=== PATIENT | female | born 1930 | race Caucasian/White ===

== ENCOUNTER 2021-03-28 11:09 | Inpatient (IN) ==
[2021-03-28 13:00] LABS: Bacteria,Urine Occasional /HPF (Few); Bilirubin,Urine Negative (Negative); Blood, Urine Negative (Negative); Glucose,Urine (UA) Negative (Negative); Ketones,Urine Negative (Negative); Nitrite,Urine Positive (Negative); Protein,Urine Negative; RBC,Urine 5 /HPF (0-4); Squamous Epithelial Cell,Urine Occasional /HPF (0-10); Urine Appearance CLEAR (Clear); Urine Color Yellow (Yellow); Urine Specific Gravity 1.008 (1.001-1.035); Urine Urobilinogen < 2.0 EU/DL (0.2-1.0)
[2021-03-28] MEDS ORDERED: SODIUM CHLORIDE 0.9% 500 ML IV STA (13:20)
[2021-03-28 14:05] LABS: Basophils % 0.6 % (0.0-0.8); Eosinophils # 0.5 10*3/uL (0.0-0.87); Eosinophils % 7.5 % (0.00-10.9); Hemoglobin 12.7 GM/DL (12.0-16.0); Immature Granulocytes % 0.4 %; Immature Granulocytes Absolute 0.03 #; Lymphocytes # 1.2 10*3/uL (1.4-4.0); Lymphocytes % 17.6 % (21.3-54.2); Mean Corpuscular HGB Conc 33.4 GM/DL (32-36); Mean Corpuscular Volume 91.3 FL (87-102); Mean Platelet Volume 8.3 FL (9.6-12.0); Monocytes % 9.5 % (1.7-12.7); Neutrophils % 64.4 % (38.7-73.9); Platelet Count 344 T/CUMM (130-400); Red Blood Count 4.16 MC/CUMM (3.8-5.5); Red Cell Distribution Width 13.2 % (9.3-17.3); White Blood Count 7.1 T/CUMM (4-12)
[2021-03-28 14:18] LABS: Calcium 9.3 MG/DL (8.5-10.1); Osmolality,Calculated 252.4 MOS/KG (273-304); Potassium 3.4 MMOL/L (3.5-5.1)
[2021-03-28] MEDS ORDERED: ONDANSETRON 4 MG/2 ML VIAL IV PRN (15:21)
[2021-03-28] MEDS ORDERED: BISACODYL 5 MG TABLET PO PRN (15:21)
[2021-03-28] MEDS ORDERED: GLUCAGON 1 MG VIAL IM PRN (15:21)
[2021-03-28] MEDS ORDERED: DEXTROSE 50% 25 GM/50 ML VIAL IV PRN (15:21)
[2021-03-28] MEDS ORDERED: POTASSIUM CHLORIDE 20 MEQ TABLET PO PRN (15:25)
[2021-03-28] MEDS: MEROPENEM 500 MG in SODIUM CHLORIDE 0.9% 100 ML IV SCH ×2 (16:50→21:19)
[2021-03-28] MEDS: SODIUM CHLORIDE 0.9% 1,000 ML IV SCH (18:58)
[2021-03-28] MEDS: PANTOPRAZOLE 40 MG TABLET PO SCH (19:57)
[2021-03-28] MEDS: ENOXAPARIN 40 MG/0.4 ML SYRINGE SUBCUT SCH (21:19)
[2021-03-28] MEDS ORDERED: ACETAMINOPHEN 325 MG TABLET PO PRN (22:33)
[2021-03-29] MEDS: MEROPENEM 500 MG in SODIUM CHLORIDE 0.9% 100 ML IV SCH ×4 (02:53→21:59)
[2021-03-29 05:18] LABS: Basophils % 0.5 % (0.0-0.8); Eosinophils # 0.6 10*3/uL (0.0-0.87); Eosinophils % 10.6 % (0.00-10.9); Hematocrit 31.5 VOL% (35.7-47.0); Hemoglobin 10.8 GM/DL (12.0-16.0); Immature Granulocytes % 0.4 %; Immature Granulocytes Absolute 0.02 #; Lymphocytes # 1.3 10*3/uL (1.4-4.0); Lymphocytes % 22.3 % (21.3-54.2); Mean Corpuscular HGB Conc 34.3 GM/DL (32-36); Mean Platelet Volume 8.4 FL (9.6-12.0); Monocytes % 11.5 % (1.7-12.7); Neutrophils % 54.7 % (38.7-73.9); Platelet Count 282 T/CUMM (130-400); Red Blood Count 3.46 MC/CUMM (3.8-5.5); White Blood Count 5.6 T/CUMM (4-12)
[2021-03-29 05:43] LABS: Eosinophils 8 % (0-10); Lymphocytes 16 % (20-55); Platelet Estimate Normal; Segmented Neutrophils 67 % (50-85); Total Cells Counted 100
[2021-03-29 05:53] LABS: Calcium 8.4 MG/DL (8.5-10.1); Osmolality,Calculated 263.4 MOS/KG (273-304); Potassium 3.3 MMOL/L (3.5-5.1)
[2021-03-29] MEDS: PANTOPRAZOLE 40 MG TABLET PO SCH (08:18)
[2021-03-29] MEDS: SODIUM CHLORIDE 0.9% 1,000 ML IV SCH ×2 (08:18→21:55)
[2021-03-29] MEDS ORDERED: amLODIPine 5 MG TABLET PO PRN (12:51)
[2021-03-29] MEDS: TRAVOPROST 0.004% OPH SOLN 2.5 ML BOTTLE BOTH EYES SCH (21:57)
[2021-03-29] MEDS: FLECAINIDE 50 MG TABLET PO SCH (21:58)
[2021-03-29] MEDS: ENOXAPARIN 40 MG/0.4 ML SYRINGE SUBCUT SCH (21:58)
[2021-03-29] MEDS: NON-FORMULARY MEDICATION (Melatonin 5 mg Tablet) PO SCH (22:06)
[2021-03-30] MEDS: MEROPENEM 500 MG in SODIUM CHLORIDE 0.9% 100 ML IV SCH ×4 (03:34→21:36)
[2021-03-30 05:54] LABS: Basophils % 0.7 % (0.0-0.8); Eosinophils # 0.5 10*3/uL (0.0-0.87); Eosinophils % 8.6 % (0.00-10.9); Hematocrit 33.1 VOL% (35.7-47.0); Hemoglobin 11.1 GM/DL (12.0-16.0); Immature Granulocytes % 0.5 %; Immature Granulocytes Absolute 0.03 #; Lymphocytes # 1.4 10*3/uL (1.4-4.0); Lymphocytes % 22.5 % (21.3-54.2); Mean Corpuscular HGB Conc 33.5 GM/DL (32-36); Mean Corpuscular Volume 91.7 FL (87-102); Mean Platelet Volume 8.3 FL (9.6-12.0); Monocytes % 9.4 % (1.7-12.7); Neutrophils % 58.3 % (38.7-73.9); Platelet Count 302 T/CUMM (130-400); Red Blood Count 3.61 MC/CUMM (3.8-5.5); Red Cell Distribution Width 13.2 % (9.3-17.3); White Blood Count 6.1 T/CUMM (4-12)
[2021-03-30 06:02] LABS: Calcium 8.3 MG/DL (8.5-10.1); Osmolality,Calculated 265.2 MOS/KG (273-304); Potassium 3.7 MMOL/L (3.5-5.1)
[2021-03-30 06:31] LABS: Band Neutrophils 3 % (0-10); Eosinophils 7 % (0-10); Lymphocytes 25 % (20-55); Segmented Neutrophils 54 % (50-85); Total Cells Counted 100
[2021-03-30 06:32] LABS: Anisocytosis 1+; Burr Cells Few; Macrocytosis Slight; Platelet Estimate Normal
[2021-03-30] MEDS: LEVOTHYROXINE 75 MCG TABLET PO SCH (07:16)
[2021-03-30] MEDS: ASPIRIN EC 325 MG TABLET PO SCH (08:58)
[2021-03-30] MEDS: ASCORBIC ACID 500 MG TABLET PO SCH (09:00)
[2021-03-30] MEDS: FLECAINIDE 50 MG TABLET PO SCH ×2 (09:00→21:37)
[2021-03-30] MEDS: PANTOPRAZOLE 40 MG TABLET PO SCH (09:01)
[2021-03-30] MEDS: ESTRADIOL 1 MG TABLET PO SCH (09:01)
[2021-03-30] MEDS: CHOLECALCIFEROL 1,000 UNIT TABLET PO SCH (09:01)
[2021-03-30] MEDS: MULTIVITAMIN (CENTRUM) TABLET PO SCH (09:01)
[2021-03-30] MEDS: VITAMIN E 400 UNIT CAPSULE PO SCH (09:03)
[2021-03-30] MEDS: ZINC GLUCONATE 50 MG TABLET PO SCH (09:03)
[2021-03-30] MEDS: OMEGA DHA EPA FISH OIL PO SCH (09:37)
[2021-03-30] MEDS: SODIUM CHLORIDE 0.9% 1,000 ML IV SCH (15:17)
[2021-03-30] MEDS ORDERED: SIMVASTATIN 10 MG TABLET PO SCH (21:00)
[2021-03-30] MEDS: TRAVOPROST 0.004% OPH SOLN 2.5 ML BOTTLE BOTH EYES SCH (21:37)
[2021-03-30] MEDS: NON-FORMULARY MEDICATION (Melatonin 5 mg Tablet) PO SCH (21:38)
[2021-03-30] MEDS: ENOXAPARIN 40 MG/0.4 ML SYRINGE SUBCUT SCH (21:38)
[2021-03-31] MEDS: MEROPENEM 500 MG in SODIUM CHLORIDE 0.9% 100 ML IV SCH (03:37)
[2021-03-31] MEDS: LEVOTHYROXINE 75 MCG TABLET PO SCH (05:40)
[2021-03-31] MEDS: SODIUM CHLORIDE 0.9% 1,000 ML IV SCH ×2 (06:30→11:49)
[2021-03-31] MEDS ORDERED: ERTAPENEM 1,000 MG in SODIUM CHLORIDE 0.9% 100 ML IV SCH (09:00)
[2021-03-31] MEDS: MULTIVITAMIN (CENTRUM) TABLET PO SCH (10:27)
[2021-03-31] MEDS: FLECAINIDE 50 MG TABLET PO SCH (10:27)
[2021-03-31] MEDS: VITAMIN E 400 UNIT CAPSULE PO SCH (10:28)
[2021-03-31] MEDS: ZINC GLUCONATE 50 MG TABLET PO SCH (10:28)
[2021-03-31] MEDS: ASPIRIN EC 325 MG TABLET PO SCH (10:28)
[2021-03-31] MEDS: CHOLECALCIFEROL 1,000 UNIT TABLET PO SCH (10:28)
[2021-03-31] MEDS: PANTOPRAZOLE 40 MG TABLET PO SCH (10:28)
[2021-03-31] MEDS: ESTRADIOL 1 MG TABLET PO SCH (10:28)
[2021-03-31] MEDS: ASCORBIC ACID 500 MG TABLET PO SCH (10:29)
[2021-03-31 11:47] VITALS: BP 160/61
[2021-03-31] MEDS: OMEGA DHA EPA FISH OIL PO SCH (11:49)
== END 2021-03-31 14:53 | disposition home health service (06) | DRG 690 ==
LOC: N.ED 11:09 → SUATTDRO 15:22 → N.EDINP 15:22 → N.5E 18:31
PROVIDERS: ADMIT Internal Medicine; ATTEND Internal Medicine

== ENCOUNTER 2021-04-29 16:05 | Inpatient (IN) ==
[2021-04-29 16:53] LABS: Basophils % 0.5 % (0.0-0.8); Eosinophils # 0.2 10*3/uL (0.0-0.87); Eosinophils % 3.2 % (0.00-10.9); Hematocrit 31.4 VOL% (35.7-47.0); Hemoglobin 10.8 GM/DL (12.0-16.0); Immature Granulocytes % 0.2 %; Immature Granulocytes Absolute 0.01 #; Lymphocytes # 1.9 10*3/uL (1.4-4.0); Lymphocytes % 29.4 % (21.3-54.2); Mean Corpuscular HGB Conc 34.4 GM/DL (32-36); Mean Corpuscular Volume 92.9 FL (87-102); Mean Platelet Volume 8.7 FL (9.6-12.0); Monocytes % 9.6 % (1.7-12.7); Neutrophils % 57.1 % (38.7-73.9); Platelet Count 257 T/CUMM (130-400); Red Blood Count 3.38 MC/CUMM (3.8-5.5); Red Cell Distribution Width 14.1 % (9.3-17.3); White Blood Count 6.6 T/CUMM (4-12)
[2021-04-29 17:10] LABS: Alanine Aminotransferase 17 U/L (13-56); Albumin 3.4 G/DL (3.4-5.0); Alkaline Phosphatase 81 U/L (45-117); Aspartate Amino Transferase 18 U/L (0-37); Bilirubin,Total < 0.39 MG/DL (0.2-1.0); Blood Urea Nitrogen 9 MG/DL (7-18); Carbon Dioxide 28 MMOL/L (21-32); Estimated Glom Filtration Rate 53 ML/MIN; Glucose 84 MG/DL (74-106); Osmolality,Calculated 255.9 MOS/KG (273-304); Potassium 3.3 MMOL/L (3.5-5.1); Sodium 129 MMOL/L (136-145)
[2021-04-29 17:14] LABS: Bilirubin,Urine Negative (Negative); Blood, Urine Negative (Negative); Glucose,Urine (UA) Negative (Negative); Ketones,Urine Negative (Negative); Nitrite,Urine Negative (Negative); Protein,Urine Negative; RBC,Urine 3 /HPF (0-4); Squamous Epithelial Cell,Urine Occasional /HPF (0-10); Urine Appearance CLOUDY (Clear); Urine Color Yellow (Yellow); Urine Specific Gravity 1.005 (1.001-1.035); Urine Urobilinogen < 2.0 EU/DL (0.2-1.0)
[2021-04-29 17:20] LABS: Anisocytosis Slight; Atypical Lymphocytes 1+; Band Neutrophils 2 % (0-10); Eosinophils 6 % (0-10); Lymphocytes 27 % (20-55); Platelet Estimate Normal; Segmented Neutrophils 56 % (50-85); Total Cells Counted 100
[2021-04-29 17:21] LABS: Macrocytosis Slight
[2021-04-29] MEDS ORDERED: ERTAPENEM 1,000 MG in SODIUM CHLORIDE 0.9% 100 ML IV ONE (17:33)
[2021-04-29] MEDS ORDERED: ACETAMINOPHEN 325 MG TABLET PO PRN (19:12)
[2021-04-29] MEDS ORDERED: DEXTROSE 50% 25 GM/50 ML VIAL IV PRN (19:12)
[2021-04-29] MEDS ORDERED: GLUCAGON 1 MG VIAL IM PRN (19:12)
[2021-04-29] MEDS ORDERED: hydrALAZINE 20 MG/1 ML VIAL IV PRN (19:12)
[2021-04-29] MEDS ORDERED: ONDANSETRON 4 MG/2 ML VIAL IV PRN (19:12)
[2021-04-29 19:50] LABS: Thyroid Stimulating Hormone 3.23 uIU/ml (0.358-3.74)
[2021-04-30] MEDS: SODIUM CHLORIDE 0.9% 1,000 ML IV SCH ×2 (00:28→15:08)
[2021-04-30] MEDS: ENOXAPARIN 40 MG/0.4 ML SYRINGE SUBCUT SCH ×2 (00:28→20:20)
[2021-04-30] MEDS: MELATONIN 3 MG TABLET PO SCH ×2 (00:28→20:20)
[2021-04-30] MEDS: amLODIPine 5 MG TABLET PO SCH ×2 (00:28→20:21)
[2021-04-30] MEDS: TAMSULOSIN 0.4 MG CAPSULE PO SCH ×2 (00:28→20:21)
[2021-04-30] MEDS: FLECAINIDE 50 MG TABLET PO SCH ×3 (00:29→20:20)
[2021-04-30] MEDS: TRAVOPROST 0.004% OPH SOLN 2.5 ML BOTTLE BOTH EYES SCH ×2 (00:29→20:20)
[2021-04-30] MEDS: SIMVASTATIN 10 MG TABLET PO SCH ×2 (00:30→20:20)
[2021-04-30 07:10] LABS: Basophils % 0.9 % (0.0-0.8); Eosinophils # 0.3 10*3/uL (0.0-0.87); Eosinophils % 5.7 % (0.00-10.9); Hematocrit 31.4 VOL% (35.7-47.0); Hemoglobin 11.1 GM/DL (12.0-16.0); Immature Granulocytes % 0.2 %; Immature Granulocytes Absolute 0.01 #; Lymphocytes # 1.2 10*3/uL (1.4-4.0); Lymphocytes % 27.1 % (21.3-54.2); Mean Corpuscular HGB Conc 35.4 GM/DL (32-36); Mean Corpuscular Volume 92.6 FL (87-102); Mean Platelet Volume 8.8 FL (9.6-12.0); Neutrophils % 57.1 % (38.7-73.9); Platelet Count 249 T/CUMM (130-400); Red Blood Count 3.39 MC/CUMM (3.8-5.5); Red Cell Distribution Width 14.2 % (9.3-17.3); White Blood Count 4.5 T/CUMM (4-12)
[2021-04-30 07:31] LABS: Albumin 2.9 G/DL (3.4-5.0); Bilirubin,Total 0.6 MG/DL (0.2-1.0); Calcium 8.6 MG/DL (8.5-10.1); Osmolality,Calculated 272.5 MOS/KG (273-304); Potassium 3.3 MMOL/L (3.5-5.1); Risk Ratio 2.1; Total Protein 6.2 G/DL (6.4-8.2); VLDL Cholesterol 12.4 MG/DL
[2021-04-30] MEDS ORDERED: POTASSIUM CHLORIDE 20 MEQ TABLET PO PRN (08:09)
[2021-04-30] MEDS: ZINC SULFATE 220 MG CAPSULE PO SCH (09:06)
[2021-04-30] MEDS: ASCORBIC ACID 500 MG TABLET PO SCH (09:06)
[2021-04-30] MEDS: MULTIVITAMIN (CENTRUM) TABLET PO SCH (09:07)
[2021-04-30] MEDS: CHOLECALCIFEROL 1,000 UNIT TABLET PO SCH (09:07)
[2021-04-30] MEDS: VITAMIN E 400 UNIT CAPSULE PO SCH (09:07)
[2021-04-30] MEDS: OMEGA 3 ACID ETHYL ESTERS 1 GM CAPSULE PO SCH (09:07)
[2021-04-30] MEDS: LEVOTHYROXINE 75 MCG TABLET PO SCH (09:07)
[2021-04-30] MEDS ORDERED: POTASSIUM CHLORIDE 20 MEQ TABLET PO ONE (09:11)
[2021-04-30] MEDS: NON-FORMULARY MEDICATION (Cranberry Fruit [Cranberry] 450 mg Tablet) PO SCH (09:13)
[2021-04-30] MEDS: NON-FORMULARY MEDICATION (Biotin 1 mg Capsule) PO SCH (09:13)
[2021-04-30] MEDS: ASPIRIN EC 325 MG TABLET PO SCH (11:29)
[2021-04-30] MEDS ORDERED: ERTAPENEM 1,000 MG in SODIUM CHLORIDE 0.9% 100 ML IV SCH (18:00)
[2021-05-01 04:51] LABS: Basophils % 0.7 % (0.0-0.8); Eosinophils # 0.3 10*3/uL (0.0-0.87); Eosinophils % 5.4 % (0.00-10.9); Hemoglobin 9.7 GM/DL (12.0-16.0); Immature Granulocytes % 0.4 %; Immature Granulocytes Absolute 0.02 #; Lymphocytes # 1.6 10*3/uL (1.4-4.0); Lymphocytes % 30.5 % (21.3-54.2); Mean Corpuscular HGB Conc 32.3 GM/DL (32-36); Mean Corpuscular Volume 95.2 FL (87-102); Monocytes % 8.4 % (1.7-12.7); Neutrophils % 54.6 % (38.7-73.9); Platelet Count 255 T/CUMM (130-400); Red Blood Count 3.15 MC/CUMM (3.8-5.5); Red Cell Distribution Width 14.6 % (9.3-17.3); White Blood Count 5.4 T/CUMM (4-12)
[2021-05-01] MEDS: SODIUM CHLORIDE 0.9% 1,000 ML IV SCH (04:55)
[2021-05-01 05:12] LABS: Calcium 8.2 MG/DL (8.5-10.1); Osmolality,Calculated 275.4 MOS/KG (273-304)
[2021-05-01 05:23] LABS: Hypochromasia 1+; Microcytosis 1+; Platelet Estimate Adequate
[2021-05-01] MEDS: MULTIVITAMIN (CENTRUM) TABLET PO SCH (09:16)
[2021-05-01] MEDS: FLECAINIDE 50 MG TABLET PO SCH (09:17)
[2021-05-01] MEDS: LEVOTHYROXINE 75 MCG TABLET PO SCH (09:17)
[2021-05-01] MEDS: OMEGA 3 ACID ETHYL ESTERS 1 GM CAPSULE PO SCH (09:17)
[2021-05-01] MEDS: VITAMIN E 400 UNIT CAPSULE PO SCH (09:17)
[2021-05-01] MEDS: CHOLECALCIFEROL 1,000 UNIT TABLET PO SCH (09:17)
[2021-05-01] MEDS: ASCORBIC ACID 500 MG TABLET PO SCH (09:17)
[2021-05-01] MEDS: NON-FORMULARY MEDICATION (Biotin 1 mg Capsule) PO SCH (10:03)
[2021-05-01] MEDS: NON-FORMULARY MEDICATION (Cranberry Fruit [Cranberry] 450 mg Tablet) PO SCH (10:04)
[2021-05-01] MEDS: ZINC SULFATE 220 MG CAPSULE PO SCH (10:32)
[2021-05-01] MEDS ORDERED: NITROFURANTOIN MACRO/MONO 100 MG CAPSULE PO SCH ×2 (11:33→21:00)
[2021-05-01] MEDS: ASPIRIN EC 325 MG TABLET PO SCH (12:05)
[2021-05-01 12:09] VITALS: BP 121/45
== END 2021-05-01 15:28 | disposition home or self-care (01) | DRG 690 ==
LOC: N.ED 16:05 → N.EDINP 19:11 → N.5E 20:13
PROVIDERS: ADMIT Internal Medicine; ATTEND Internal Medicine